=== PATIENT | female | born 1990 | race Caucasian/White ===

== ENCOUNTER 2021-12-31 23:10 | Emergency (ER) | payer BC, OTHER ==
[~2021-12-31] VITALS: Ht 167.6 cm; Wt 101.7 kg
[2022-01-01 01:44] LABS: Urine Bacteria NONE SEEN /hpf (None Seen); Urine Blood TRACE /uL (Negative); Urine Mucus FEW (None Seen); Urine Specific Gravity 1.016 (1.001-1.035); Urine WBC 8 /hpf (0 - 5)
[2022-01-01] MEDS ORDERED: KETOROLAC TROMETH 30 MG/ML 1ML VIAL IM ONE (01:45)
[2022-01-01] MEDS ORDERED: SUMAtriptan SUCCINATE 6 MG/0.5 ML VL SC ONE (01:45)
[2022-01-01] MEDS ORDERED: ACETAMINOPHEN 325 MG TAB PO ONE (01:45)
[2022-01-01 02:12] LABS: Basophils # (auto) 0 10 ^3/uL (0-0.2); Eosinophils # (auto) 0 10 ^3/uL (0-0.8); Eosinophils % (auto) 0.2 % (0.0-7.0)
[2022-01-01 02:16] LABS: Basophils % (auto) 0.1 % (0.0-2.0); Hematocrit 36.9 % (36.0-46.0); Hemoglobin 12.2 g/dL (12.2-16.2); Lymphocytes # (auto) 2.2 10 ^3/uL (0.4-5.4); Lymphocytes % (auto) 15.1 % (10.0-50.0); Mean Corpuscular Hemoglobin 25.7 pg (28.0-32.0); Mean Corpuscular Hgb Conc. 33.2 g/dL (32.0-36.0); Mean Corpuscular Volume 77.5 fL (80.0-100.0); Monocytes # (auto) 0.3 10 ^3/uL (0-1.3); Monocytes % (auto) 2.4 % (0.0-12.0); Neutrophils % (auto) 82.2 % (37.0-80.0); Red Blood Cells 4.76 10^6/uL (4.0-5.20); Red Cell Distribution Width 15.9 % (11.8-14.3); White Blood Cell 14.6 10^3/uL (4.4-10.8)
[2022-01-01 02:34] LABS: Anion Gap 8 (5-15); Blood Urea Nitrogen 9 mg/dL (7-18); Calcium 8.7 mg/dL (8.5-10.1); Carbon Dioxide 23 mmol/L (21-32); Chloride 109 mmol/L (98-107); Glucose 100 mg/dL (74-106); Potassium 4.4 mmol/L (3.5-5.1); Sodium 140 mmol/L (136-145)
[2022-01-01 02:36] LABS: Alanine Aminotransferase 34 U/L (13-56); Aspartate Aminotransferase 20 U/L (15-37); BUN/Creatinine Ratio 15.8; GFR African American 158 mL/min; GFR Non-African American 131 mL/min
[2022-01-01 02:39] LABS: Alkaline Phosphatase 61 U/L (45-117); Bilirubin, Total 0.3 mg/dL (0.2-1.0)
[2022-01-01] MEDS ORDERED: NITR-87 PO (02:51)
[2022-01-01] MEDS ORDERED: NITROFURANTOIN 100 mg CAP PO ONE (03:00)
[2022-01-01 03:40] VITALS: BP 136/80
== END 2022-01-01 03:49 | disposition home or self-care (01) ==
LOC: ER 23:10
DX: G43.909 Migraine, unspecified, not intractable, without status migrainosus (principal); R31.9 Hematuria, unspecified; R82.81 Pyuria; D72.829 Elevated white blood cell count, unspecified
CPT/HCPCS: 36415; 70450; 80053; 81001; 85025; 96372; 99284; J1885; J3030

== ENCOUNTER 2022-07-02 12:43 | Emergency (ER) | payer BC, OTHER ==
[~2022-07-02] VITALS: Ht 167.6 cm; Wt 99.0 kg
[~2022-07-02 12:43] MED LIST: NITR-87 PO
[2022-07-02 16:04] VITALS: BP 129/69
[2022-07-02] MEDS ORDERED: ONDANSETRON ODT 4 MG TAB PO ONE (16:15)
[2022-07-02] MEDS ORDERED: SUMAtriptan SUCCINATE 6 MG/0.5 ML VL SC ONE (16:15)
[2022-07-02] MEDS ORDERED: SUMA50TA2 PO (17:28)
[2022-07-02] MEDS ORDERED: ONDA-144 PO (17:28)
== END 2022-07-02 17:35 | disposition home or self-care (01) ==
LOC: ER 12:43
DX: G43.909 Migraine, unspecified, not intractable, without status migrainosus (principal)
CPT/HCPCS: 96372; 99283; J3030; Q0162

== ENCOUNTER → 2022-09-24 | Emergency (ER) | payer OTHER ==
[~2022-09-24] MED LIST changes: +ONDA-144 PO; +SUMA50TA2 PO
== END | disposition left against medical advice (07) ==
LOC: ER 12:54
DX: R07.81 Pleurodynia (principal); Z53.21 Procedure and treatment not carried out due to patient leaving prior to being seen by health care provider